=== PATIENT | female | born 1935 | race Caucasian/White ===

== ENCOUNTER 2018-02-14 18:48 | Emergency (ER) | payer OTHER ==
[~2018-02-14] VITALS: Ht 157.5 cm; Wt 59.0 kg
[2018-02-14] MEDS ORDERED: METHOTREXATE 22.5 MG PO (19:35)
[2018-02-14] MEDS ORDERED: SYNTHROID75 MCG PO (19:35)
[2018-02-14] MEDS ORDERED: FOLIC ACID0.8 M1 PO (19:36)
[2018-02-14] MEDS ORDERED: VITAMIN C500 M1 PO (19:36)
[2018-02-14] MEDS ORDERED: VITAMIN D32000 UNIT PO (19:36)
[2018-02-14] MEDS ORDERED: CALCIUM 1,0001 EACH PO (19:37)
[2018-02-14 22:49] VITALS: BP 169/61
== END 2018-02-14 22:51 | disposition short-term general hospital (02) ==
LOC: ER 18:48
DX: S43.014A Anterior dislocation of right humerus, initial encounter (principal); S80.211A Abrasion, right knee, initial encounter; R20.0 Anesthesia of skin; M06.9 Rheumatoid arthritis, unspecified; Z88.8 Allergy status to other drugs, medicaments and biological substances; Z88.0 Allergy status to penicillin; W18.39XA Other fall on same level, initial encounter; Y93.89 Activity, other specified; Y92.89 Other specified places as the place of occurrence of the external cause; Y99.8 Other external cause status